=== PATIENT | male | born 2000 | race Hispanic/Latino ===

== ENCOUNTER 2025-04-04 20:49 | Emergency (ER) | payer OTHER, SELFPAY ==
[~2025-04-04] VITALS: Ht 172.7 cm; Wt 104.0 kg
[2025-04-04 22:17] LABS: PLATELET COUNT, AUTOMATED 266 10^3/uL (150-450)
[2025-04-04 22:41] LABS: AMPHETAMINES LEVEL URINE NEGATIVE (NEGATIVE); BARBITURATES URINE NEGATIVE (NEGATIVE); BENZODIAZEPINES URINE NEGATIVE (NEGATIVE); CANNABINOIDS URINE NEGATIVE (NEGATIVE); COCAINE METABOLITE URINE NEGATIVE (NEGATIVE); METHADONE URINE NEGATIVE (NEGATIVE); OPIATES URINE NEGATIVE (NEGATIVE); PHENCYCLIDINE URINE NEGATIVE (NEGATIVE)
[2025-04-04 22:43] LABS: ETHYL ALCOHOL (ETHANOL) < 0.003 % (0.000-0.010)
[2025-04-04 22:44] LABS: SALICYLATE LEVEL < 3.0 MG/DL (<30)
[2025-04-04 22:45] LABS: ALT/SGPT 50 U/L (7.0-40); AST/SGOT 27 U/L (<34); CALCIUM LEVEL 9.8 MG/DL (8.5-10.1); CARBON DIOXIDE LEVEL 30 MMOL/L (20-31); CHLORIDE LEVEL 100 MMOL/L (98-107); CREATININE FOR GFR 1.07 MG/DL (0.70-1.30); GLOMERULAR FILTRATION RATE > 90.0 (>60); POTASSIUM SERUM 3.8 MMOL/L (3.5-5.1); SODIUM LEVEL 141 MMOL/L (136-145)
[2025-04-05 00:21] VITALS: BP 125/79; TEMP 97; O2SAT 100
== END 2025-04-05 00:22 | disposition home or self-care (01) ==
LOC: M ED 20:49
DX: F43.20 Adjustment disorder, unspecified (principal); F32.A Depression, unspecified; G47.00 Insomnia, unspecified